=== PATIENT | male | born 1965 | race Caucasian/White ===

== ENCOUNTER 2023-11-05 01:11 | Emergency (ER) | payer OTHER ==
[~2023-11-05] VITALS: Ht 177.8 cm; Wt 131.5 kg
[2023-11-05] MEDS ORDERED: SODIUM CHLORIDE 0.9% 1,000 ML IV ONE (01:35)
[2023-11-05 01:50] LABS: BASO # 0.1 10*3/uL (0.0-0.1); BASO % 0.8 % (0.0-1.0); EOS # 0.2 10*3/uL (0.0-0.4); EOS % 1.9 % (1.0-4.0); HEMATOCRIT 42.2 % (42.0-52.0); LYMPH # 2.2 10*3/uL (1.3-4.4); LYMPH % 18.7 % (27.0-41.0); MEAN CELL VOLUME 96.3 fl (80.0-94.0); MEAN CORPUSCULAR HGB CONC 33.2 g/dl (33.0-37.0); MEAN PLATELET VOLUME 10.1 fl (9.6-12.3); MONO # 0.8 10*3/uL (0.1-1.0); MONO % 6.9 % (3.0-9.0); NEUT # 8.4 10*3/uL (2.3-7.9); NEUT % 71.4 % (47.0-73.0); PLATELET COUNT AUTOMATED 322 10*3/uL (130-400); RED BLOOD COUNT 4.38 10*6/uL (4.50-5.90); RED CELL DISTRI WIDTH 12.7 % (0-14.5); WHITE BLOOD COUNT 11.7 10*3/uL (4.8-10.8)
[2023-11-05 02:01] LABS: ACT PARTIAL THROMBO TIME 26.1 SECONDS (20.0-32.1)
[2023-11-05 02:11] LABS: ALKALINE PHOSPHATASE 100 U/L (46-116); BUN 16 mg/dl (9-23); CHLORIDE 108 mmol/L (98-107); ETHYL ALCOHOL < 3.0 mg/dl (<3); POTASSIUM 3.9 mmol/L (3.4-5.1); SGPT/ALT 23 U/L (5-49); TOTAL PROTEIN 6.8 gm/dL (6.0-8.0)
[2023-11-05 03:32] LABS: BILIRUBIN Negative (Negative); BLOOD Negative (Negative); CLARITY Clear (Clear); COLOR Yellow (Yellow); GLUCOSE Negative (Negative); KETONE Negative (Negative); LEUKO ESTERASE Negative (Negative); NITRITE Negative (Negative); PH 5.5 (4.5-8.0); SPECIFIC GRAVITY >= 1.030 (1.001-1.030)
[2023-11-05 03:39] LABS: URINE AMPHETAMINES Negative (1000ng/ml); URINE BARBITURATES Negative (200ng/ml); URINE BENZODIAZEPINES Negative (200ng/ml); URINE CANNABINOIDS (THC) Negative (50ng/ml); URINE COCAINE Negative (300ng/ml); URINE METHADONE Negative (300ng/ml); URINE OPIATES Negative (300ng/ml); URINE PHENCYCLIDINE Negative (25ng/ml)
[2023-11-05 03:53] LABS: CALCIUM OXALATE CRYSTALS 1+
[2023-11-05 03:54] LABS: RBC 0-2 rbc/hpf (0-2); WBC 0-2 wbc/hpf (0-5)
== END 2023-11-05 05:00 | disposition home or self-care (01) ==
LOC: ED 01:11
PROVIDERS: Internal Medicine
DX: G89.29 Other chronic pain (principal); I10 Essential (primary) hypertension; Z90.49 Acquired absence of other specified parts of digestive tract

== ENCOUNTER 2024-05-27 17:56 | Emergency (ER) | payer OTHER ==
[~2024-05-27] VITALS: Ht 177.8 cm; Wt 131.5 kg
[2024-05-27] MEDS ORDERED: SODIUM CHLORIDE 0.9% 1,000 ML IV ONE (18:05)
[2024-05-27] MEDS ORDERED: HYDROmorphONE Hydrochloride 1 MG/ML SYR IV ONE (18:05)
[2024-05-27] MEDS ORDERED: Ondansetron Hydrochloride 4 MG/2 ML VIAL IV ONE (18:05)
[2024-05-27] MEDS ORDERED: 'CLONIDINE0.1 MG PO (18:16)
[2024-05-27] MEDS ORDERED: AMLODIPINE BESYL5 MG PO (18:16)
[2024-05-27] MEDS ORDERED: ATORVASTATIN CA40 M1 PO (18:16)
[2024-05-27] MEDS ORDERED: HYDRALAZINE HYD50 MG PO (18:16)
[2024-05-27] MEDS ORDERED: MORPHINE SULFAT15 M7 PO (18:17)
[2024-05-27] MEDS ORDERED: LOSARTAN POTAS100 M1 PO (18:17)
[2024-05-27] MEDS ORDERED: MELOXICAM7.5 MG PO (18:17)
[2024-05-27] MEDS ORDERED: METOPROLOL SUCC25 M2 PO (18:17)
[2024-05-27] MEDS ORDERED: ROPINIROLE HY0.25 MG PO (18:18)
[2024-05-27] MEDS ORDERED: TIZANIDINE HCL4 MG PO (18:18)
[2024-05-27] MEDS ORDERED: SENNA8.6 MG PO (18:19)
[2024-05-27 18:20] LABS: BASO # 0.1 10*3/uL (0.0-0.1); BASO % 0.6 % (0.0-1.0); EOS # 0.1 10*3/uL (0.0-0.4); EOS % 0.5 % (1.0-4.0); MEAN CORPUSCULAR HGB 31.7 pg (27.0-31.0); MEAN PLATELET VOLUME 10.8 fl (9.6-12.3); MONO # 0.9 10*3/uL (0.1-1.0); MONO % 8.1 % (3.0-9.0); NEUT # 8.3 10*3/uL (2.3-7.9); NEUT % 74.8 % (47.0-73.0); PLATELET COUNT AUTOMATED 300 10*3/uL (130-400); RED BLOOD COUNT 4.48 10*6/uL (4.50-5.90); WHITE BLOOD COUNT 11.1 10*3/uL (4.8-10.8)
[2024-05-27] MEDS ORDERED: ALDACTONE25 M1 PO (18:20)
[2024-05-27] MEDS ORDERED: TYLENOL325 M2 PO (18:21)
[2024-05-27 18:42] LABS: BUN 16 mg/dl (9-23); CHLORIDE 108 mmol/L (98-107); POTASSIUM 4.2 mmol/L (3.4-5.1)
[2024-05-27] MEDS ORDERED: HYDROmorphONE Hydrochloride 0.5 MG/0.5 ML SYRINGE IV ONE (22:55)
== END 2024-05-27 23:22 | disposition short-term general hospital (02) ==
LOC: ED 17:56
PROVIDERS: Emergency Medicine
DX: R20.0 Anesthesia of skin (principal); M54.50 Low back pain, unspecified; I10 Essential (primary) hypertension; Z88.2 Allergy status to sulfonamides; Z88.6 Allergy status to analgesic agent; Z88.5 Allergy status to narcotic agent; Z88.8 Allergy status to other drugs, medicaments and biological substances; Z90.49 Acquired absence of other specified parts of digestive tract

== ENCOUNTER 2025-04-04 10:57 | Emergency (ER) | payer OTHER ==
[~2025-04-04] VITALS: Ht 177.8 cm; Wt 138.3 kg
[~2025-04-04 10:57] MED LIST: 'CLONIDINE0.1 MG PO; ALDACTONE25 M1 PO; AMLODIPINE BESYL5 MG PO; ATORVASTATIN CA40 M1 PO; HYDRALAZINE HYD50 MG PO; LOSARTAN POTAS100 M1 PO; MELOXICAM7.5 MG PO; METOPROLOL SUCC25 M2 PO; MORPHINE SULFAT15 M7 PO; ROPINIROLE HY0.25 MG PO; SENNA8.6 MG PO; TIZANIDINE HCL4 MG PO; TYLENOL325 M2 PO
[2025-04-04 11:42] LABS: BASO # 0.1 10*3/uL (0.0-0.1); BASO % 0.6 % (0.0-1.0); EOS # 0.1 10*3/uL (0.0-0.4); EOS % 0.5 % (1.0-4.0); MEAN CELL VOLUME 93.3 fl (80.0-94.0); MEAN CORPUSCULAR HGB 31.3 pg (27.0-31.0); MEAN PLATELET VOLUME 10.6 fl (9.6-12.3); MONO # 0.7 10*3/uL (0.1-1.0); MONO % 6.5 % (3.0-9.0); NEUT # 8.8 10*3/uL (2.3-7.9); NEUT % 78.8 % (47.0-73.0); NUCLEATED RED BLOOD CELL 0.0 % (0.0-0.0); NUCLEATED RED BLOOD CELL 0.0 10*3/uL (0.0-0.0); PLATELET COUNT AUTOMATED 303 10*3/uL (130-400); RED CELL DISTRI WIDTH 13.3 % (0-14.5)
[2025-04-04 12:13] LABS: BUN 13 mg/dl (9-23)
[2025-04-04] MEDS ORDERED: PERCOCET 5-3251 EACH PO ×2 (14:12→17:53)
== END 2025-04-04 14:18 | disposition home or self-care (01) ==
LOC: ED 10:57
PROVIDERS: Nurse Practitioner Family
DX: I10 Essential (primary) hypertension (principal); G89.29 Other chronic pain; M54.50 Low back pain, unspecified; Z88.2 Allergy status to sulfonamides; Z88.5 Allergy status to narcotic agent; Z88.8 Allergy status to other drugs, medicaments and biological substances; Z88.6 Allergy status to analgesic agent; Z86.73 Personal history of transient ischemic attack (TIA), and cerebral infarction without residual deficits